=== PATIENT | female | born 1955 | race Caucasian/White ===

== ENCOUNTER 2017-09-25 18:52 | Inpatient (IN) | END 2017-09-27 12:26 | disposition home or self-care (01) | DRG 446 ==

== ENCOUNTER 2017-09-29 14:52 | Inpatient (IN) | END 2017-10-03 18:50 | disposition home or self-care (01) | DRG 419 ==

== ENCOUNTER 2017-11-28 18:41 | Emergency (ER) | END 2017-11-29 01:34 | disposition home or self-care (01) ==

== ENCOUNTER 2017-12-13 11:57 | Day surgery (SDC) | END 2017-12-13 16:50 | disposition home or self-care (01) ==